=== PATIENT | male | born 1955 | race Caucasian/White ===

== ENCOUNTER 2021-06-03 11:00 | Emergency (ER) | payer OTHER ==
[2021-06-03] MEDS ORDERED: Sodium Chloride 0.9% 10 ML Syringe FLUSH PRN (12:15)
[2021-06-03] MEDS ORDERED: Alum Hydrox/Mag Hydrox/Simeth 15 ML, Lidocaine 2% 15 ML PO ONE ×2 (12:15)
--- NOTE | 2021-06-03 12:20 | EDM.PDOC ---
ED HPI GENERAL MEDICAL PROBLEM - General Chief Complaint: Abdominal Pain Stated Complaint: LOWER LEFT STOMACH PAIN Time Seen by Provider: 06/03/21 12:00 Source of Information: Reports: Patient. Denies: Old Records History Limitations: Reports: Other (no old records) - History of Present Illness INITIAL COMMENTS - FREE TEXT/NARRATIVE: 66 yo male from the [facility] with a pHx of cholecystectomy and recurrent pancreatitis presents with several days of intermittent LUQ abdominal pain that is not going away today. No associated sx's. No self tx. Here for 2 weeks. Onset: Gradual Onset Date: 05/31/21 Duration: Intermittent Location: Reports: Abdomen (LUQ) Quality: Reports: Ache Severity: Moderate Improves with: Reports: None Worsens with: Reports: Other (unsure) Context: Reports: Other (See HPI) Associated Symptoms: Reports: No Other Symptoms. Denies: Chest Pain, Cough, Fever/Chills, Nausea/Vomiting, Rash, Shortness of Breath Treatments WAIST PRESSER: Reports: Other (see below) (none) Left Middle Abdomen Pain Score (Numeric/FACES): 8 - Related Data Allergies Allergy/AdvReac Type Severity Reaction Status Date / Time lisinopril Allergy Other Verified 06/03/21 11:34 Home Meds: Home Meds Acetaminophen/HYDROcodone [HYDROcodone-Acetaminophen 5-325 MG *] 1 tab PO Q4H PRN #12 each 06/03/21 [Rx] Berberine 1 dose PO BID 06/03/21 [History] Olmesartan Medoxomil 5 mg PO DAILY 06/03/21 [History] Omeprazole 20 mg PO BEDTIME 06/03/21 [History] Pioglitazone [Actos] 30 mg PO DAILY 06/03/21 [History] Potassium Chloride 20 meq PO BID 06/03/21 [History] atorvaSTATin [Lipitor] 40 mg PO BEDTIME 06/03/21 [History] glipiZIDE [Glipizide ER] 5 mg PO DAILY 06/03/21 [History] metFORMIN [Glucophage] 1,000 mg PO BID 06/03/21 [History] Past Medical History HEENT History: Reports: Impaired Vision Cardiovascular History: Reports: High Cholesterol, Hypertension Gastrointestinal History: Reports: Pancreatitis Neurological History: Reports: Concussion Endocrine/Metabolic History: Reports: Diabetes, Type II - Past Surgical History GI Surgical History: Reports: Cholecystectomy Social & Family History - Tobacco Use Tobacco Use Status *Q: Never Tobacco User - Caffeine Use Caffeine Use: Reports: Coffee - Recreational Drug Use Recreational Drug Use: No ED ROS GENERAL - Review of Systems Review Of Systems: See Below Constitutional: Reports: No Symptoms HEENT: Reports: No Symptoms Respiratory: Reports: No Symptoms Cardiovascular: Reports: No Symptoms GI/Abdominal: Reports: Abdominal Pain. Denies: Black Stool, Bloody Stool, Constipation, Diarrhea, Distension, Hematemesis, Hematochezia, Melena, Nausea, Vomiting : Reports: No Symptoms Musculoskeletal: Reports: No Symptoms Skin: Reports: No Symptoms Neurological: Reports: No Symptoms ED EXAM, GI/ABD - Physical Exam Exam: See Below Exam Limited By: No Limitations General Appearance: Alert, WD/WN, No Apparent Distress Eyes: Bilateral: Normal Appearance Ears: Normal External Exam, Normal Canal, Hearing Grossly Normal Nose: Normal Inspection, No Blood Throat/Mouth: Normal Inspection, Normal Lips, Normal Oropharynx, Normal Voice, No Airway Compromise Head: Atraumatic, Normocephalic Neck: Normal Inspection Respiratory/Chest: No Respiratory Distress, Lungs Clear, Normal Breath Sounds, No Accessory Muscle Use Cardiovascular: Regular Rate, Rhythm, No Edema GI/Abdominal Exam: Normal Bowel Sounds, Soft, Non-Tender, No Distention. No: Distended, Tender Back Exam: Normal Inspection. No: CVA Tenderness (R), CVA Tenderness (L) Extremities: Normal Inspection, Normal Range of Motion, Non-Tender, No Pedal Edema. No: Pedal Edema Neurological: Alert, Oriented, CN II-XII Intact, Normal Cognition, No Motor/Sensory Deficits Psychiatric: Normal Affect, Normal Mood Skin Exam: Warm, Dry, Intact, Normal Color, No Rash Course - Vital Signs Last Recorded V/S: Last Vital Signs Temp 35.5 C L 06/03/21 11:41 Pulse 80 06/03/21 14:43 Resp 12 06/03/21 14:43 BP 137/74 06/03/21 14:43 Pulse Ox 97 06/03/21 14:43 - Orders/Labs/Meds Orders: Active Orders 24 hr Category Date Time Status Sodium Chloride 0.9% [Saline Flush] Med 06/03/21 12:15 Active 10 ml FLUSH ASDIRECTED PRN Saline Lock Insert [OM.PC] Routine Oth 06/03/21 12:15 Ordered Medication Orders Sodium Chloride (Sodium Chloride 0.9% 10 Ml Syringe) 10 ml FLUSH ASDIRECTED PRN PRN Reason: Keep Vein Open Last Admin: 06/03/21 13:00 Dose: 10 ml Documented by: MARIELA Labs: Laboratory Tests 06/03/21 06/03/21 06/03/21 Range/Units 12:15 12:55 13:10 WBC 11.2 H (4.5-11.0) K/uL RBC 4.49 (4.30-5.90) M/uL Hgb 12.2 (12.0-15.0) g/dL Hct 37.6 L (40.0-54.0) % MCV 84 (80-98) fL MCH 27 (27-31) pg MCHC 32 (32-36) % Plt Count 187 (150-400) K/uL Sodium 139 L (140-148) mmol/L Potassium 4.6 (3.6-5.2) mmol/L Chloride 102 (100-108) mmol/L Carbon Dioxide 21 (21-32) mmol/L Anion Gap 20.6 H (5.0-14.0) mmol/L BUN 27 H (7-18) mg/dL Creatinine 1.3 (0.8-1.3) mg/dL Est Cr Clr Drug Dosing 63.01 mL/min Estimated GFR (MDRD) 56 L (>60) Glucose 163 H (74-106) mg/dL Calcium 9.0 (8.5-10.1) mg/dL Total Bilirubin 0.7 (0.2-1.0) mg/dL AST 24 (15-37) U/L ALT 34 (12-78) U/L Alkaline Phosphatase 78 (46-116) U/L Total Protein 7.2 (6.4-8.2) g/dL Albumin 4.2 (3.4-5.0) g/dL Globulin 3.0 (2.3-3.5) g/dL Albumin/Globulin Ratio 1.4 (1.2-2.2) Lipase 116 (73-393) U/L Urine Color Yellow (YELLOW) Urine Appearance Clear (CLEAR) Urine pH 5.0 (5.0-8.0) Ur Specific Bronson >= 1.030 (1.008-1.030) Urine Protein Negative (NEGATIVE) mg/dL Urine Glucose (UA) Negative (NEGATIVE) mg/dL Urine Ketones 40 H (NEGATIVE) mg/dL Urine Occult Blood Negative (NEGATIVE) Urine Nitrite Negative (NEGATIVE) Urine Bilirubin Negative (NEGATIVE) Urine Urobilinogen 0.2 (0.2-1.0) EU/dL Ur Leukocyte Esterase Negative (NEGATIVE) Urine RBC Not seen (0-5) Urine WBC 0-5 (0-5) Ur Epithelial Cells Few Amorphous Sediment Not seen Urine Bacteria Not seen Urine Mucus Moderate Meds: Medications Generic Name Dose Route Start Last Admin Trade Name Freq PRN Reason Stop Dose Admin Sodium Chloride 10 ml 06/03/21 12:15 06/03/21 13:00 Sodium Chloride 0.9% 10 Ml Syringe FLUSH 10 ml ASDIRECTED PRN Administration Keep Vein Open Discontinued Medications Generic Name Dose Route Start Last Admin Trade Name Freq PRN Reason Stop Dose Admin Al Hydroxide/Mg Hydroxide 15 0 ml 06/03/21 12:15 06/03/21 12:49 ml/ Lidocaine HCl 15 ml PO 06/03/21 12:16 30 ml ONETIME ONE Administration Hydromorphone HCl 0.5 mg 06/03/21 13:04 06/03/21 13:18 Hydromorphone 0.5 Mg/0.5 Ml Syringe IVPUSH 06/03/21 13:05 0.5 mg ONETIME ONE Administration Lactated Ringer's 1,000 mls @ 999 mls/hr 06/03/21 13:39 06/03/21 14:42 Ringers, Lactated IV 06/03/21 14:39 999 mls/hr BOLUS ONE Administration Sodium Chloride 80 mls @ 3.5 mls/sec 06/03/21 14:30 06/03/21 14:35 Normal Saline IV 06/03/21 14:31 3.5 mls/sec ASDIRECTED NEY Administration Iopamidol 126 ml 06/03/21 14:30 06/03/21 14:35 Iopamidol 612 Mg/Ml 150 Ml Bottle IV 06/03/21 14:31 126 ml . DIRECTED NEY Administration Sodium Chloride 10 ml 06/03/21 14:20 06/03/21 14:36 Sodium Chloride 0.9% 10 Ml Syringe FLUSH 06/03/21 14:21 10 ml ONETIME ONE Administration - Radiology Interpretation Free Text/Narrative:: CT abd/pelvis with IV contrast- - Re-Assessments/Exams Free Text/Narrative Re-Assessment/Exam: 06/03/21 13:04 No change in paini after GI cocktail po Departure - Departure Time of Disposition: 15:45 Disposition: Home, Self-Care 01 Condition: Fair Clinical Impression: LUQ abdominal pain - Discharge Information *PRESCRIPTION DRUG MONITORING PROGRAM REVIEWED*: No *COPY OF PRESCRIPTION DRUG MONITORING REPORT IN PATIENT NIDA: No Prescriptions: Acetaminophen/HYDROcodone [HYDROcodone-Acetaminophen 5-325 MG *] 1 tab PO Q4H PRN #12 each PRN Reason: Pain Referrals: PCP,None [Primary Care Provider] - Forms: ED Department Discharge Additional Instructions: Eat a light diet and clear liquids until you are feeling better. If there is concern for your bowels being harder than normal take Miralax up to twice daily. For pain relief use ibuprofen and either acetaminophen OR hydrocodone for pain relief. Recheck if worse. Sepsis Event Note (ED) - Evaluation Sepsis Screening Result: No Definite Risk - Focused Exam Vital Signs: Vital Signs Temp Pulse Resp BP Pulse Ox 06/03/21 14:43 80 12 137/74 97 06/03/21 13:18 74 134/76 06/03/21 12:46 78 138/77 99 06/03/21 12:16 78 131/74 100 06/03/21 11:46 86 135/74 99 06/03/21 11:41 35.5 C L 74 18 136/78 100 06/03/21 11:34 35.5 C L 74 18 136/78 100 - My Orders Last 24 Hours: My Active Orders 06/03/21 12:15 Sodium Chloride 0.9% [Saline Flush] 10 ml FLUSH ASDIRECTED PRN Saline Lock Insert [OM.PC] Routine - Assessment/Plan Last 24 Hours: My Active Orders 06/03/21 12:15 Sodium Chloride 0.9% [Saline Flush] 10 ml FLUSH ASDIRECTED PRN Saline Lock Insert [OM.PC] Routine
[2021-06-03] MEDS ORDERED: HYDROmorphone 0.5 MG/0.5 ML Syringe IVPUSH ONE (13:04)
[2021-06-03] MEDS ORDERED: Lactated Ringers 1,000 ML IV ONE (13:39)
[2021-06-03] MEDS ORDERED: Sodium Chloride 0.9% 10 ML Syringe FLUSH ONE (14:20)
[2021-06-03] MEDS ORDERED: Iopamidol 612 MG/ML 150 ML Bottle IV SCH (14:30)
[2021-06-03] MEDS ORDERED: Sodium Chloride 0.9% 80 ML IV SCH (14:30)
--- NOTE | 2021-06-03 15:23 | CT ---
Abdomen Pelvis w Cont CLINICAL HISTORY: Left upper quadrant pain COMPARISON: None. TECHNIQUE: Transverse scans were obtained from the base of the lungs to the pubic symphysis following oral contrast and IV infusion of contrast.Auto dosage reduction and iterative reconstructiontechniques employed. FINDINGS: The lung bases are hyperaerated but clear. The liver shows no mass or biliary dilatation. The gallbladder has been removed. The spleen has a normal size and shape. The pancreas shows some generalized ductal prominence. There are some atrophic changes in the mid pancreas and pancreatic head. There are some stippled calcifications in the pancreatic head which is felt to be secondary to some chronic pancreatitis. There is some stranding through the peripancreatic fat at the pancreatic tail.. The adrenal glands appear normal bilaterally . The kidneys are free of mass, stones or hydronephrosis. There is a subcentimeter cyst in lower pole left kidney. A 1.8 cm cyst off the lower pole of the right kidney.. The ureters have a normal course and caliber. The bladder shows some generalized bladder wall thickening. There is prostatic enlargement.. The aorta shows some atheromatous plaque without aneurysm. There are a few small nonspecific periaortic lymph nodes. Small intestinal configuration is nonacute. There has been a bowel anastomosis in the left upper quadrant. There is gas and feces throughout the colon. The appendix has normal contour. IMPRESSION: Changes of chronic pancreatitis. There is some stranding in the peripancreatic fat around the tail which is suspect for some acute pancreatitis. There is pancreatic duct dilatation
== END 2021-06-03 16:03 | disposition home or self-care (01) ==
LOC: JP.ED 11:00
DX: R10.12 Left upper quadrant pain (principal); E78.00 Pure hypercholesterolemia, unspecified; I10 Essential (primary) hypertension; E11.9 Type 2 diabetes mellitus without complications; Z79.899 Other long term (current) drug therapy; Z88.8 Allergy status to other drugs, medicaments and biological substances; Z79.84 Long term (current) use of oral hypoglycemic drugs
CPT/HCPCS: 36415; 74177; 80053; 81001; 83690; 85027; 96374; 99284; A9270; J1170; J7120; Q9967